=== PATIENT | female | born 1950 | race Caucasian/White ===

== ENCOUNTER 2024-07-29 06:39 | Day surgery (SDC) | payer MEDICARE, OTHER ==
[2024-07-29] MEDS ORDERED: PROPOFOL 200 MG/20 ML BOTTLE ONE (08:45)
[2024-07-29] MEDS ORDERED: MIDAZOLAM HCL 2 MG/2 ML VIAL ONE (08:54)
[2024-07-29] MEDS ORDERED: TETRACA/BENZOCA/BUTAMBEN SPRAY 1 SPR CAN TP ONE (08:56)
[2024-07-29 11:23] VITALS: TEMP 97.3
== END 2024-07-29 11:23 | disposition home or self-care (01) ==
LOC: DS 06:39
PROVIDERS: ATTEND Surgery
DX: D64.9 Anemia, unspecified (principal); R13.10 Dysphagia, unspecified; R10.13 Epigastric pain; K44.9 Diaphragmatic hernia without obstruction or gangrene; K29.70 Gastritis, unspecified, without bleeding; K29.80 Duodenitis without bleeding; K57.30 Diverticulosis of large intestine without perforation or abscess without bleeding; K62.4 Stenosis of anus and rectum; K63.89 Other specified diseases of intestine; K21.9 Gastro-esophageal reflux disease without esophagitis; I11.0 Hypertensive heart disease with heart failure; I50.9 Heart failure, unspecified; M19.90 Unspecified osteoarthritis, unspecified site; F32.9 Major depressive disorder, single episode, unspecified; E03.9 Hypothyroidism, unspecified; E78.5 Hyperlipidemia, unspecified; Z87.440 Personal history of urinary (tract) infections; Z85.3 Personal history of malignant neoplasm of breast; Z79.899 Other long term (current) drug therapy; Z98.890 Other specified postprocedural states
CPT/HCPCS: 43239; 45380; 88305; 88312; 88313; J2250; J3490; J7120; A4663